=== PATIENT | male | born 1990 | race Caucasian/White ===

== ENCOUNTER 2023-08-31 14:26 | Emergency (ER) | payer OTHER, SELFPAY ==
--- NOTE | ~2023-08-31 | CT_ITS ---
EXAMINATION: CT abdomen pelvis wo con DATE: 08/31/2023 15:34 INDICATION: Umbilical hernia. Abdominal pain. TECHNIQUE: Computed tomography (CT) of the abdomen and pelvis was performed without intravenous contr ast. Automated exposure control and iterative reconstruction technique were employed. The dose-length product was 1086.19 mGy-cm. COMPARISON: CT abdomen and pelvis 10/02/2015 FINDINGS: The visualized portions of the lung bases are clear without pneumonia or pleural effusion. The heart size is normal. No pericardial effusion. The liver, spleen, gallbladder, pancreas, adrenal glands, and kidneys are normal. There is no urolithiasis. There are bilateral inguinal hernias contai eulalia fat. The appendix is normal. There is an umbilical hernia containing fat with fat stranding, con sistent with inflammation versus scarring. There are no pathologically enlarged lymph nodes. There is no free intraperitoneal fluid. There is mild lumbar spondylosis. IMPRESSION: 1. Small umbilical hernia containing fat with fat stranding which may be inflammation or scarring. 2. Bilateral inguinal hernias containing fat. Reviewed, dictated and finalized at location E. [facility]ING ASSOC[employer] IMPRESSION: 1. Small umbilical hernia containing fat with fat stranding which may be inflam mation or scarring. 2. Bilateral inguinal hernias containing fat.
--- NOTE | 2023-08-31 15:41 | ED.ABDPAIN ---
HPI - Abdominal Pain General Chief Complaint: Abdominal Pain Stated Complaint: ?hernia History of Present Illness HPI narrative: 33-year-old male presents to the emergency room for evaluation of umbilical pain. Patient states that he was swinging a pick ax yesterday when he noticed a lump to his umbilicus. Patient states he was able to push the lump back in. Denies nausea vomiting or diarrhea Related Data Allergies Allergy/AdvReac Type Severity Reaction Status Date / Time No Known Allergies Allergy Mild Verified 08/31/23 14:36 Review of Systems Review of Systems: CONSTITUTIONAL: Denies fever, chills, or sweats. EYES: Denies visual changes, redness, or discharge. ENT: Denies rhinorrhea, congestion, sore throat, or otalgia. CARDIOVASCULAR: Denies chest pain, palpitations, or edema. RESPIRATORY: Denies cough or dyspnea. GASTROINTESTINAL: Reports abdominal pain GENITOURINARY: Denies dysuria or hematuria. SKIN: Denies rash or itching. MUSCULOSKELETAL: Denies back pain, joint pain, or myalgia. NEUROLOGIC: Denies headache, numbness, dizziness, or weakness. PSYCHIATRIC: Denies anxiety or depression. Exam Narrative: GENERAL: Well-appearing, well-nourished, no physical limitations, and in no acute distress. HEAD: Normocephalic, atraumatic. EYES: Conjunctivae normal, PERRLA and EOMI. CHEST: Clear to auscultation. No respiratory distress. No wheezes rales or rhonchi. HEART: Regular rate and rhythm. No murmur heard. Normal peripheral pulses. ABDOMEN: Soft, small reducible umbilical hernia nondistended, normal active bowel sounds. EXTREMITIES: Normal range of motion. No edema. No clubbing or cyanosis SKIN: Warm, dry, no rash. No noted wounds NEURO: No focal deficits. Alert and oriented x3. MAEW. CN's II-XI intact bilaterally, normal gait PSYCH: Cooperative. Normal mood and affect. MDM - Abdominal Pain Imaging Data Radiologist's impression: ITS Impressions Abdomen/Pelvis CT 08/31/23 15:34 IMPRESSION: 1. Small umbilical hernia containing fat with fat stranding which may be inflammation or scarring. 2. Bilateral inguinal hernias containing fat. Discharge Plan Discharge Clinical Impression: Hernia, umbilical Patient Disposition: Home, Self-Care Condition: Stable Instructions: Antibiotic Form, Umbilical Hernia (ED) Follow-up/Referrals: Stu,ZACHARY Morales [Primary Care Provider] - Narinder Carmona MD [Physician] - Time of Disposition: 15:43
== END 2023-08-31 15:53 | disposition home or self-care (01) ==
LOC: ANHED 15:49
PROVIDERS: Emergency Provider Nurse Practitioner Family; PCP Physician Assistant Medical
DX: K42.9 Umbilical hernia without obstruction or gangrene (principal); K40.20 Bilateral inguinal hernia, without obstruction or gangrene, not specified as recurrent
CPT/HCPCS: 74176; 99284

== ENCOUNTER 2023-10-18 08:53 | Outpatient (CLI) | payer OTHER, SELFPAY | END 2023-10-18 08:54 | disposition home or self-care (01) | LOC: ANHSURGERY 08:57 | PROVIDERS: PCP Physician Assistant Medical; Visit Provider Surgery | DX: Z01.818 Encounter for other preprocedural examination (principal); K40.20 Bilateral inguinal hernia, without obstruction or gangrene, not specified as recurrent | CPT/HCPCS: 36415; 86850; 86900; 86901 ==

== ENCOUNTER 2023-11-15 01:51 | Day surgery (SDC) | payer OTHER, SELFPAY ==
[2023-10-13 12:01] VITALS: BMI 32.8
--- NOTE | 2023-10-13 12:07 | PC.NURSE ---
Addendum entered by Gayla Lockett RN 11/07/23 09:30: PT TO ARRIVE AT 1100 ON 11/15/23 FOR SURGERY AT 1300. LAST DOSE OF KRATOM 11/11/23. Original Note: Report to the Outpatient Waiting Room, entrance under the green pavilion located off [facility], at time 10:00 on date 10/27/23. Planned Procedure Time: 12:00. Time changes happen often and if your time is changed the preop area will call you the afternoon before. - You and your visitor will be asked to self-screen and do not enter if you have any COVID symptoms. - A mask is optional within the hospital at this time. Patients may have clear liquids (water, carbonated beverages, clear teas, apple juice) until 3 hours prior to surgery (9:00) with a maximum of 20 ounces. - No food from midnight until time of surgery Take the following medications with a SIP of water the morning of surgery: NONE DO NOT STOP ANY OF YOUR OTHER PRESCRIPTION MEDICATIONS PRIOR TO SURGERY ?EXCEPT THE FOLLOWING Medications to discontinue per physician: KRATOM Date to take last dose: 10/23/23 PER ANESTHESIOLOGIST. Please no make-up, nail occitan, hairspray, perfume, deodorant, or body powder the day of surgery. No jewelry (including any body piercings) or valuables the day of surgery, leave them at home. Please take a shower or bath the night before, or the morning of, surgery with an antibacterial soap. Wear comfortable, loose fitting clothing. - Jewelry must be removed prior to entering the operating room. Rings and piercings that are not removed may be cut off. - The hospital will not accept responsibility for valuables. - Please leave all valuables, including medications, at home the day of surgery. If you are going home after surgery, a licensed clark driver must drive you home. - NO public transportation without another adult if you receive anesthesia. - We recommend that an adult stay with you for 24 hours following discharge. - We also recommend that you do not drive, make important decision, drink alcoholic beverages, or take any drugs that were not prescribed by your health care provider for at least 24 hours after your discharge time. Follow any additional instructions given to you from your surgeon. If you or anyone in your household have experienced Covid symptoms in the past week, please notify your surgeon or the nurse liaison at the phone number below for possible testing. Telephone instructions given to PT - RED FABIAN and asked if any additional questions and then verbalized understanding. Patient advised to call surgeon office or pre surgery nurse liaison [phone] if any additional questions.
--- NOTE | 2023-11-07 09:30 | PC.NURSE ---
Pt states no changes in medications or health history since initial interview. New pre-op instructions reviewed with pt. Pt denies further questions at this time.
--- NOTE | 2023-11-14 13:44 | P.PNAN_ITS ---
Anes - Initial Pre Proc Eval Procedure: Operation Date: 11/15/23 13:00 Proposed Procedures p Robotic Assisted Laparoscopic Bilateral Inguinal Hernia Repair with Mesh - Narinder Carmona MD s Open Umbilical Hernia Repair - Narinder Carmona MD Date/Time: 11/14/23 13:44 Surgeon: Narinder Carmona MD Pre Op Diagnosis: Reducible Umb Hernia, Reducible Liu Ing Hernias Patient Data Age: 33 Gender: M Height: 1.75 m Weight: 100.7 kg Allergies Allergy/AdvReac Type Severity Reaction Status Date / Time No Known Allergies Allergy Mild Verified 11/15/23 11:05 Home Medications Medication Instructions Recorded Confirmed Type Kratom 1 dose PO DAILY 10/13/23 11/15/23 History Patient hx anesthesia problems: none Family hx anesthesia problems: none Results Review: All pre-operative results and documents have been reviewed as part of the pre- operative evaluation. [facility] Past Medical History Medical History (Updated 09/06/23 @ 09:52 by Vivian Raza CMA) Anxiety Asthma Surgical History Surgical History (Updated 09/06/23 @ 09:05 by Renuka Farr MA) History of surgery on arm Family History Family History (Updated 09/06/23 @ 09:06 by Renuka Farr MA) Father Hypertension Social History Social History (Updated 09/06/23 @ 09:06 by Renuka Farr MA) Smoking status: Current every day smoker Tobacco type: e-cigarettes/vaping Smokeless tobacco user: chewing tobacco Alcohol intake: never Substance use: former Substance use type: marijuana and opiates Other substance usage details: OCC MARIJUANA CURRENTLY Last use: 10/24/19 Living arrangements: with family Occupation/Education: occupation Spiritual care concerns: No Anes - Eval Final PreProcedure Day of Procedure 11/14/23 13:44 Patient weight: obese Heart: regular rate and rhythm Lungs: clear to auscultation Airway: Mallampati scale class II Neurological: alert and oriented Last oral intake: >/= 8 hours ASA classification: III Emergent: no Anesthetic plan: proceed Anesthesia type and monitoring: general ETT and standard monitoring Results Review: All pre-operative results and documents have been reviewed as part of the pre- operative evaluation. Informed Consent: The patient's anesthetic plan and its attendant risks and benefits were discussed with the patient/family/POA. Questions were solicited and answers provided to the satisfaction of the patient/family/POA.
[2023-11-15] VITALS (7 sets, daily range): BP systolic 120–141; BP diastolic 69–99; PULSE 80–92; RESP 10–21; TEMP 37.1; O2SAT 97–100
[2023-11-15] MEDS: ACETAMINOPHEN 500 MG TABLET 1000 MG PO (11:08)
[2023-11-15] MEDS: KETOROLAC 15 MG/ML VIAL (*BKC) IV PUSH ×2 (11:33→16:28)
[2023-11-15] MEDS: LACTATED RINGERS 1,000 ML 30 ML IV CONT ×2 (11:33→17:04)
--- NOTE | 2023-11-15 13:27 | PM.IMHP ---
H&P: HPI History of Present Illness Date/Time: 11/15/23 13:27 Chief Complaint: Bilateral inguinal hernias Narrative: Buck is a 33 y/o male who presents to the office for evaluation of a umbilical hernia. Patient was seen at [facility] ED on 08/31/23 with complaints of a painful umbilical bulge. Patient states the day prior to being seen in the ED, he was swinging a pick ax and noticed a lump to his umbilicus. He also reports a burning sensation in bilateral groin areas. He states he has been using CBD and THC for pain. He reports an episode of nausea/vomiting yesterday. Denies any issues with bowel habits or with urination. CT abd/pelvis on 08/31/23 revealed a small umbilical hernia containing fat with fat stranding which may be inflammation or scarring. Bilateral inguinal hernias containing fat. Review of Systems Review of Systems: The remainder of the review of systems to include constitutional, HEENT, cardiovascular, respiratory, GI, , integumentary, musculoskeletal, endocrine, immunologic, hematologic, psychiatric, and neurologic are all negative except for which is mentioned above in the HPI. [facility] Past Medical History Medical History Anxiety Asthma Surgical History Surgical History History of surgery on arm Family History Family History Father Hypertension Social History Social History Smoking status: Current every day smoker Tobacco type: e-cigarettes/vaping Smokeless tobacco user: chewing tobacco Alcohol intake: never Substance use: former Substance use type: marijuana and opiates Other substance usage details: OCC MARIJUANA CURRENTLY Last use: 10/24/19 Living arrangements: with family Occupation/Education: occupation Spiritual care concerns: No Meds Home Medications and Allergies Home Medications Medication Instructions Recorded Confirmed Type Kratom 1 dose PO DAILY 10/13/23 11/15/23 History Allergies Allergy/AdvReac Type Severity Reaction Status Date / Time No Known Allergies Allergy Mild Verified 11/15/23 11:05 Vital Signs Vital Signs - 24 hr 11/15/23 11:36 Temperature 37.1 C Pulse Rate 80 Respiratory Rate 16 Blood Pressure 120/70 Pulse Oximetry 100 Oxygen Delivery Room Air Exam Const: General: comfortable and no acute distress HENMT: Ears: TM's normal bilaterally Face/Nose/Sinus: Normal nares present Mouth: Yes moist mucous membranes Eyes: General: appearance normal, both eyes and all related structures Sclera: sclerae normal Pupils: Equal, round and reactive pupils present EOM: EOMs intact bilaterally Neck: Neck: supple and no JVD Resp: Effort & Inspection: normal respiratory effort Auscultation: clear to auscultation bilaterally Cardio: Rate: regular rate Rhythm: regular rhythm GI: Other: Inspection: normal to inspection Auscultation: normal bowel sounds Palpation/Percussion: Yes non-tender, Yes no guarding, No Rebound tenderness present and Yes normal to percussion Other: Small reducible umbilical hernia mild tenderness 1cm defect : Other: Penis: normal penis Scrotum: scrotum normal Testes: Testes normal Other: Small bilateral inguinal hernias reducible, no bulging. No masses Skin: General skin exam: normal color and no rashes or lesions noted Neuro: General: gait normal Speech: normal speech Motor exam (neuro): 5/5 motor strength present throughout Sensory Exam: normal sensation Extrem: General: normal to inspection Psych: Mental Status: mental status grossly normal Affect: normal affect Assessment and Plan Assessment and plan (1) Bilateral inguinal hernia: Qualifiers: Obstruction and gangrene presence: without obstruction or gangrene Recurrence: non-recurrent Qualified Code(s): K40.
--- NOTE | 2023-11-15 13:31 | WPDHPUPDATE1 ---
History and Physical Update Update Date/Time: 11/15/23 13:31 History and Physical has been reviewed, including an updated exam of the patient. There are NO changes in the patient's condition. Risks, benefits, and alternatives have been discussed and questions answered. Patient agrees to proceed with procedure.
[2023-11-15] MEDS: ceFAZolin 2 GM/D5W 50 ML 2 GM/50 ML BAG IVPB (13:38)
[2023-11-15] MEDS: BUPivacaine HCL 0.5% 10 ML AMP 30 ML INFILTRATE (14:02)
[2023-11-15] MEDS: LIDO 1%/EPINEPHRINE 1:100,000 50 ML VIAL 30 ML INFILTRATE (14:03)
--- NOTE | 2023-11-15 17:08 | W.PM.PROC2 ---
Procedure Note - Detailed Date of Procedure 11/15/23 Pre-op Diagnosis Reducible Umb Hernia, Reducible Liu Ing Hernias Post-op Diagnosis Same Procedure Performed 1.) Robotic assisted laparoscopic bilateral inguinal hernia repair with Bard 3D mid weight mesh. 2.) Open umbilical hernia repair without mesh. Surgeon Narinder Carmona MD Television Tube Inspector Blayne Stein, RUTH Le Anesthesia General Indications Patient is a 33-year-old white male presented with complaints of groin pain bilaterally. CT scan of the pelvis showed a bilateral small inguinal hernias containing fat. A small reducible umbilical hernia on exam and on CT scan. Presents now for repair of all these hernias. Findings The umbilical defect was about 1.5cm. Has some preperitoneal fat within it. It was closed primarily with 3 separate 0 Ethibond sutures. The bilateral inguinal hernias were small direct defects bilaterally. Only fatty tissue was found in the hernia defects. 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 The tissue was discarded and not sent to pathology. Description of Procedure After informed consent was obtained patient brought to the operating room was placed supine position and then general endotracheal anesthesia was administered. The abdomen and bilateral groin regions were then prepped and draped usual sterile fashion. A time-out was then performed correctly identifying the patient as well as procedure to be performed verifying that he was given perioperative IV antibiotics. No site marking was the is these were bilateral inguinal hernia repairs. I 1st started by placing a 10mm Optiview port in left upper quadrant. Once inside the abdomen insufflated to adequate pneumoperitoneum of 15mmHg of CO2. Then then had the patient placed in the head-down Trendelenburg position for 15? tilt. This allowed the bowel to fall out of the pelvis. Then identified 2 small direct inguinal hernia defects bilaterally. I then proceeded to place additional robotic trocar ports across the mid abdomen. The COPsync robot was then brought to the patient's bedside and docked to the patient's right side. Robotic arms were then attached the robotic ports. I then scrubbed out the procedure sent down the robotic console to perform the dissection robotically. I then started to make a preperitoneal flap across the mid lower abdomen. Thirty just anterior medial to the bilateral anterior superior iliac spines and dissected with robotic hook cautery in the preperitoneal plane created a preperitoneal flap. Bilaterally I dissected down to the pubic tubercles and released the bladder flap and dissected down into the space of Retzius for a couple of cm. I then continued my dissection laterally on the right side identifying the small direct inguinal defect with some preperitoneal fat within it. This was dissected out. I then dissected the peritoneum off of the right vas deferens and testicular vessels and dissected the peritoneum all the way up to the psoas muscle where the vas deferens and testicular vessels . I also explored the cord identified moderate-sized cord lipoma. This is dissected free the other cord structures and left in the left right lower quadrant the abdomen to be removed later at the end the procedure. I dissected the peritoneal flap up onto the psoas muscle until I felt that the proximal portion of the mesh would not roll up with the reapproximation of the peritoneum. I then continued my dissection laterally on the left side from the pubic tubercle and also identified a small direct inguinal defect and pseudo sac on the left side. The preperitoneal fat was dissected out this region as well and then the peritoneum was dissected off of the cord structures. The vas deferens testicular vessels were identified as was a large cord lipoma on the left side. The cord lipoma was dissected free the other cord structures and resected. It was lef
[2023-11-15] MEDS: fentaNYL CITRATE INJ (*CRX) 100 MCG/2 ML VIAL 25 MCG IV PUSH ×4 (17:15→17:23)
[2023-11-15] MEDS: oxyCODONE HCL (*CRX) 5 MG TAB IR PO (17:52)
== END 2023-11-15 18:39 | disposition home or self-care (01) ==
PROVIDERS: PCP Physician Assistant Medical; Visit Provider Surgery
PROC: 8E0Y4CZ Robotic Assisted Procedure of Lower Extremity, Percutaneous Endoscopic Approach (ICD-10-PCS; CPT 49650; principal; 2023-11-15 13:00)
PROC: (CPT 49591; 2023-11-15 13:00)
DX: K40.20 Bilateral inguinal hernia, without obstruction or gangrene, not specified as recurrent (principal); K42.9 Umbilical hernia without obstruction or gangrene; F17.290 Nicotine dependence, other tobacco product, uncomplicated; F17.220 Nicotine dependence, chewing tobacco, uncomplicated; F12.90 Cannabis use, unspecified, uncomplicated; E66.9 Obesity, unspecified; Z68.34 Body mass index [BMI] 34.0-34.9, adult
CPT/HCPCS: 49591; 49650; S2900; 36415; 86850; 86900; 86901; A9270; C1781; J0330; J0690; J1100; J1885; J2250; J2270; J2405; J2704; J3010; J7030; J7120